=== PATIENT | male | born 1985 | race Caucasian/White ===

== ENCOUNTER 2019-12-27 19:54 | Emergency (ER) | payer BC ==
[~2019-12-27] VITALS: Ht 177.8 cm; Wt 102.2 kg
[2019-12-27] MEDS ORDERED: HYDROcodone/APAP 5/325MG 1 TAB TABLET PO ONE (20:15)
--- NOTE | 2019-12-27 20:17 | PHYS DOC ---
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 He states it is sharp and shooting especially when he flexes at his ankle and lifts his foot up and moves around and rotates at the ankle. He states he did have some tingling earlier in that area but it is gone. He denies any numbness or tingling. He denies injury. Patient denies skin color change, skin temperature change or numbness. Patient was sent over by Dr. Caruso that he is soft today and wanted to rule out a DVT or nerve pain. Patient states when he is up and moving it is a 8 or 9 out of 10. He states when he is just sitting with his leg elevated is just a throbbing pain at a 4 or 5 out of 10. Review of Systems: Review of Systems: : Denies dysuria. [] Musculoskeletal: Denies back pain or joint pain. Right lower leg pain. [] Heart Score: Risk Factors: Risk Factors: DM, Current or recent (<one month) smoker, HTN, HLP, family history of CAD, obesity. Risk Scores: Score 0 - 3: 2.5% MACE over next 6 weeks - Discharge Home Score 4 - 6: 20.3% MACE over next 6 weeks - Admit for Clinical Observation Score 7 - 10: 72.7% MACE over next 6 weeks - Early Invasive Strategies Current Medications: Current Medications Medications (Trade) Dose Ordered Sig/[facility] Start Time Stop Time Status Last Admin Dose Admin Acetaminophen/ Hydrocodone Bitart (Lortab 5/325) 1 tab 1X ONCE 12/27/19 20:15 12/27/19 20:16 Allergies: Allergies: Allergies Coded Allergies Type Severity Reaction Last Updated Verified Sulfa (Sulfonamide Antibiotics) Allergy Severe RASH 12/27/19 Yes Physical Exam: PE: Constitutional: Well developed, well nourished, no acute distress, non-toxic appearance. [] HENT: Normocephalic, atraumatic, bilateral external ears normal, oropharynx moist, no oral exudates, nose normal. [] Eyes: PERRLA, EOMI, conjunctiva normal, no discharge. [] Neck: Normal range of motion, no tenderness, supple, no stridor. [] Cardiovascular:Heart rate regular rhythm, no murmur [] Lungs & Thorax: Bilateral breath sounds clear to auscultation [] Abdomen: Bowel sounds normal, soft, no tenderness, no masses, no pulsatile masses. [] Skin: Warm, dry, no erythema, no rash. [] Back: No tenderness, no CVA tenderness. [] Extremities: No tenderness, no cyanosis, no clubbing, ROM intact, no edema. [] Neurologic: Alert and oriented X 3, normal motor function, normal sensory function, no focal deficits noted. [] Psychologic: Affect normal, judgement normal, mood normal. [] Normal Physical Exam EKG: EKG: [] Radiology/Procedures: Radiology/Procedures: [] Impression: [facility] [address] [place] [address] IMAGING REPORT Signed PATIENT: TYLER LU ACCOUNT: [id number] : 1985 LOCATION: ER AGE: 34 SEX: M EXAM STATUS: REG ER ORD. PHYSICIAN: TEMI JOSÉ APRN REASON: TINGLING, POSSIBLE NERVE PAIN IN LEG. PROCEDURE: CT LUMBAR SPINE WO CONTRAST EXAM: Lumbar spine CT without contrast. HISTORY: Paresthesia. TECHNIQUE: Computed tomographic images of the lumbar spine were obtained without contrast. Multiplanar reformatting was performed. *One or more of the following individualized dose reduction techniques were utilized for this examination: 1. Automated exposure control. 2. Adjustment of the mA and/or kV according to patient size. 3. Use of iterative reconstruction technique. COMPARISON: None. FINDINGS: There is no significant listhesis or scoliosis. The vertebral mazariegos are normal in height and the disc spaces are preserved. There is no fracture or suspicious lytic or sclerotic osseous lesion. There are mild disc bulges at the mid and lower lumbar levels. This is associated with minimal right foraminal stenosis at L4-L5. IMPRESSION: 1. No acute osseous finding. 2. Mild disc bulges at the mid lower lumbar levels, resulting in suspected minimal right foraminal stenosis at L4-5. Electronically signed by: Teresa Johnston MD (12/27/2019 8:39 PM) [facility] DICTATED and SIGNED BY: TERESA JOHNSTON MD DATE: 12/27/192038 [facility] [address] [place] [address] IMAGING REPORT Signed PATIENT: TYLER LU ACCOUNT: [id number] : 1985 LOCATION: ER AGE: 34 SEX: M EXAM STATUS: REG ER ORD. PHYSICIAN: TEMI JOSÉ APRN REASON: LOWER LEG PAIN PROCEDURE: VENOUS LOWER EXTREMITY RIGHT VENOUS LOWER EXTREMITY RIGHT History: Reason: LOWER LEG PAIN / Spl. Instructions: / History: Comparison: None. Discussion: Multiple longitudinal and transverse high resolution real-time images of the venous system of right lower extremity were obtained with color and Doppler sampling. The common femoral, superficial femoral, popliteal and proximal calf veins are all patent and demonstrate normal flow and compressibility. Normal respiratory phasicity and augmentation is present. Impression: 1. No evidence of deep vein thrombosis. Electronically signed by: Hair Petty DO (12/27/2019 9:02 PM) [facility] DICTATED and SIGNED BY: HAIR PETTY DO DATE: 12/27/192101 Course & Med Decision Making: Course & Med Decision Making Pertinent Labs and Imaging studies reviewed. (See chart for details) Patient denies any low back pain or any sharp shooting pain that goes down the back of his leg. No unilateral leg swelling. No tenderness to the leg. Pedal pulses strong and present. Skin pink warm and dry. Cap refill less than 3 seconds. Patient can wiggle his toes and rotate his leg fully at the ankles and bend his knees fully. No focal weakness. Patient has full strength and equal movements in bilateral lower extremities. He can wiggle his toes. Ambulatory with a steady gait although it is painful in the right leg. Again he denies injury. No deformity seen. No saddle paresthesia. No loss of bowel or bladder. I have gone over findings for this patient with Dr Mcintosh. IMPRESSION: 1. No acute osseous finding. 2. Mild disc bulges at the mid lower lumbar levels, resulting in suspected minimal right foraminal stenosis at L4-5. 3. No DVT [] Efra Disclaimer: Efra Disclaimer: This electronic medical record was generated, in whole or in part, using a voice recognition dictation system. Departure Departure Impression: Primary Impression: Paresthesia and pain of right extremity Disposition: 01 HOME, SELF-CARE Condition: STABLE Patient Instructions: Lumbosacral Radiculopathy Additional Instructions: Follow up with primary care physican. Take medications as prescribed and with food. Do not drive or drink alcohol on these medications. Scripts Orphenadrine Citrate (ORPHENADRINE CITRATE) 100 Mg Tablet.er 1 TAB PO BID, #20 TAB Prov: TEMI JOSÉ APRN 12/27/19 Ibuprofen (IBUPROFEN) 600 Mg Tablet 600 MG PO PRN Q6HRS PRN for INFLAMMATION, #20 TAB Prov: TEMI JOSÉ APRN 12/27/19 Hydrocodone/Apap 5-325 (NORCO 5-325 TABLET) 1 Each Tablet 1 TAB PO PRN Q6HRS PRN for PAIN, #10 TAB 0 Refills Prov: TEMI JOSÉ APRN 12/27/19 Methylprednisolone (MEDROL) 4 Mg Tab.ds.pk 1 PKG PO UD, #1 PKG Prov: TEMI JOSÉ APRN 12/27/19 Justicifation of Admission Dx: Justifications for Admission: Justification of Admission Dx: N/A TEMI JOSÉ APRN Dec 27, 2019 20:17
--- NOTE | 2019-12-27 20:42 | RAD ---
EXAM: Lumbar spine CT without contrast. HISTORY: Paresthesia. TECHNIQUE: Computed tomographic images of the lumbar spine were obtained without contrast. Multiplanar reformatting was performed. *One or more of the following individualized dose reduction techniques were utilized for this examination: 1. Automated exposure control. 2. Adjustment of the mA and/or kV according to patient size. 3. Use of iterative reconstruction technique. COMPARISON: None. FINDINGS: There is no significant listhesis or scoliosis. The vertebral mazariegos are normal in height and the disc spaces are preserved. There is no fracture or suspicious lytic or sclerotic osseous lesion. There are mild disc bulges at the mid and lower lumbar levels. This is associated with minimal right foraminal stenosis at L4-L5. IMPRESSION: 1. No acute osseous finding. 2. Mild disc bulges at the mid lower lumbar levels, resulting in suspected minimal right foraminal stenosis at L4-5. Electronically signed by: Teresa Brink MD (12/27/2019 8:39 PM) [facility]
--- NOTE | 2019-12-27 21:05 | RAD ---
VENOUS LOWER EXTREMITY RIGHT History: Reason: LOWER LEG PAIN / Spl. Instructions: / History: Comparison: None. Discussion: Multiple longitudinal and transverse high resolution real-time images of the venous system of right lower extremity were obtained with color and Doppler sampling. The common femoral, superficial femoral, popliteal and proximal calf veins are all patent and demonstrate normal flow and compressibility. Normal respiratory phasicity and augmentation is present. Impression: 1. No evidence of deep vein thrombosis. Electronically signed by: Hair Petty DO (12/27/2019 9:02 PM) [facility]
[2019-12-27] MEDS ORDERED: IBUP-1007 PO (21:16)
[2019-12-27] MEDS ORDERED: HYDR-3164 PO (21:16)
[2019-12-27] MEDS ORDERED: METH4TAB2 PO (21:16)
[2019-12-27 21:26] VITALS: BP 124/66
[2019-12-27] MEDS ORDERED: ORPH100T PO (21:26)
== END 2019-12-27 21:32 | disposition home or self-care (01) ==
LOC: ER 19:54
DX: M79.661 Pain in right lower leg (principal); R20.2 Paresthesia of skin; Z88.2 Allergy status to sulfonamides
CPT/HCPCS: 72131; 93971; 99285